=== PATIENT | female | born 1945 | race Caucasian/White ===

== ENCOUNTER 2023-11-27 11:52 | Emergency (ER) | payer BC, MEDICAID ==
[~2023-11-27] VITALS: Ht 170.2 cm; Wt 96.3 kg
[~2023-11-27 11:52] MED LIST: ARIP2TAB20 PO; ASPI-1071 PO; ESCI20TA39 PO; METO-539 PO; TRAM50TA2 PO; TRIA1TAB5 PO
[2023-11-27 12:36] VITALS: TEMP 97.2
[2023-11-27 13:11] LABS: BASOPHILS # (AUTO) 0.1 X10'3 (0-0.2); BASOPHILS % (AUTO) 0.9 % (0-1); EOSINOPHILS # (AUTO) 0.1 X10'3 (0-0.9); EOSINOPHILS % (AUTO) 2.1 % (0-6); HEMATOCRIT 39.9 % (35.0-45.0); HEMOGLOBIN 13.3 g/dl (12.0-16.0); LYMPHOCYTES # (AUTO) 1.9 X10'3 (1.1-4.8); LYMPHOCYTES % (AUTO) 28.6 % (21-51); MEAN CORPUSCULAR HEMOGLOBIN 30.2 PG (27.0-31.0); MEAN CORPUSCULAR HGB CONC 33.5 g/dL (33.0-36.5); MEAN CORPUSCULAR VOLUME 90.3 FL (78-98); MEAN PLATELET VOLUME 10.5 FL (7.4-10.4); MONOCYTES # (AUTO) 0.7 X10'3 (0-0.9); MONOCYTES % (AUTO) 10.6 % (2-12); NEUTROPHILS # (AUTO) 3.8 X10'3 (1.8-7.7); NEUTROPHILS % (AUTO) 57.8 % (42-75); PLATELET COUNT 249 X10'3 (140-440); RED BLOOD COUNT 4.41 X10'6 (4.20-5.60); WHITE BLOOD COUNT 6.6 X10'3 (4.5-11.0)
[2023-11-27 13:25] LABS: APTT 25 SECONDS (22-32); PROTHROMBIN TIME 10.9 SECONDS (9.0-12.0)
[2023-11-27 13:27] LABS: ALANINE AMINOTRANSFERASE 37 U/L (12-78); ALBUMIN 4.1 G/DL (3.4-5.0); ALBUMIN/GLOBULIN RATIO 1.1 (1.1-1.5); ALKALINE PHOSPHATASE 78 IU/L (46-116); ANION GAP 9 (8-16); ASPARTATE AMINO TRANSFERASE 20 U/L (10-37); BLOOD UREA NITROGEN 29 MG/DL (7-18); BUN/CREATININE RATIO 22.5 (10.0-20.0); CALCIUM 9.3 MG/DL (8.5-10.1); CHLORIDE 108 MMOL/L (99-107); CREATININE 1.29 MG/DL (0.40-0.90); GLUCOSE 125 MG/DL (70-104); POTASSIUM 4.4 MMOL/L (3.5-5.1); SODIUM 144 MMOL/L (135-145); TOTAL CARBON DIOXIDE 26.8 MMOL/L (24-32); eCRCL 35 ML/MIN; eGFR 40 ML/MIN
[2023-11-27 13:35] LABS: PRO BRAIN NATRIURETIC PEPTIDE 142 PG/ML (0-450)
[2023-11-27] MEDS ORDERED: iohexol 350MG/ML 100ml bottle IV ONE (14:30)
[2023-11-27 16:23] VITALS: BP 169/89; PULSE 82; RESP 16; O2SAT 96
== END 2023-11-27 17:24 | disposition home or self-care (01) ==
LOC: ER 11:53
DX: R06.02 Shortness of breath (principal); I10 Essential (primary) hypertension; I25.2 Old myocardial infarction; Z90.49 Acquired absence of other specified parts of digestive tract; Z79.82 Long term (current) use of aspirin; Z79.899 Other long term (current) drug therapy
CPT/HCPCS: 36415; 71045; 71275; 80053; 83880; 84484; 85025; 85379; 85610; 85730; 99285; J3490; Q9967

== ENCOUNTER 2024-03-12 16:34 | Inpatient (IN) | payer BC, MEDICAID ==
[~2024-03-12] VITALS: Ht 170.2 cm; Wt 34.7 kg
[~2024-03-12 16:34] MED LIST changes: -ARIP2TAB20 PO; +ARIP2TAB67 PO
[2024-03-12] MEDS ORDERED: AMLO-139 PO (17:13)
[2024-03-12] MEDS ORDERED: ATOR40TA PO (17:13)
[2024-03-12 18:16] LABS: BILIRUBIN,URINE NEGATIVE (Neg); CLARITY,URINE CLEAR (Clear); COLOR,URINE YELLOW (Yellow); GLUCOSE, URINE NEGATIVE (Neg); KETONES,URINE NEGATIVE (Neg); LEUKOCYTE ESTERASE ,URINE NEGATIVE (Neg); NITRITES, URINE NEGATIVE (Neg); OCCULT BLOOD,URINE TRACE-INTACT (Neg); PROTEIN,URINE NEGATIVE (Neg); UA COLLECTION TYPE CLN CATCH MIDSTREAM; UROBILINOGEN,URINE 0.2 E.U/dL (0.2-1.0)
[2024-03-12 18:24] LABS: ALBUMIN 3.6 G/DL (3.4-5.0); ANION GAP 9 (8-16); BLOOD UREA NITROGEN 18 MG/DL (7-18); BUN/CREATININE RATIO 15.5 (10.0-20.0); CALCIUM 8.7 MG/DL (8.5-10.1); CHLORIDE 107 MMOL/L (99-107); CREATININE 1.16 MG/DL (0.40-0.90); GLUCOSE 123 MG/DL (70-104); POTASSIUM 3.8 MMOL/L (3.5-5.1); SODIUM 140 MMOL/L (135-145); TOTAL CARBON DIOXIDE 23.9 MMOL/L (24-32); eCRCL 22 ML/MIN; eGFR 45 ML/MIN
[2024-03-12 18:26] LABS: URINE AMPHETAMINE SCREEN NEGATIVE (Neg); URINE BARBITUATE SCREEN NEGATIVE (Neg); URINE BENZODIAZEPINES SCREEN NEGATIVE (Neg); URINE CANNABINOID SCREEN NEGATIVE (Neg); URINE COCAINE SCREEN NEGATIVE (Neg); URINE METHADONE SCREEN NEGATIVE (Neg); URINE OPIATE SCREEN NEGATIVE (Neg); URINE PHENCYCLIDINE SCREEN NEGATIVE (Neg)
[2024-03-12 18:28] LABS: BASOPHILS % (AUTO) 0.5 % (0-1); EOSINOPHILS # (AUTO) 0.1 X10'3 (0-0.9); EOSINOPHILS % (AUTO) 2.1 % (0-6); HEMATOCRIT 39.3 % (35.0-45.0); HEMOGLOBIN 13.1 g/dl (12.0-16.0); LYMPHOCYTES # (AUTO) 1.4 X10'3 (1.1-4.8); MEAN CORPUSCULAR HEMOGLOBIN 30.2 PG (27.0-31.0); MEAN CORPUSCULAR HGB CONC 33.3 g/dL (33.0-36.5); MEAN CORPUSCULAR VOLUME 90.5 FL (78-98); MEAN PLATELET VOLUME 10.8 FL (7.4-10.4); MONOCYTES # (AUTO) 0.7 X10'3 (0-0.9); MONOCYTES % (AUTO) 10.2 % (2-12); NEUTROPHILS # (AUTO) 4.5 X10'3 (1.8-7.7); NEUTROPHILS % (AUTO) 66.2 % (42-75); PLATELET COUNT 218 X10'3 (140-440); RED BLOOD COUNT 4.34 X10'6 (4.20-5.60); RED CELL DISTRIBUTION WIDTH 14.2 % (11.5-14.5); WHITE BLOOD COUNT 6.8 X10'3 (4.5-11.0)
[2024-03-12 18:31] LABS: SQUAMOUS EPITHELIAL CELL,UR FEW /LPF (FEW)
[2024-03-12 18:32] LABS: BACTERIA,URINE NONE SEEN /HPF (Neg); RBC,URINE NONE SEEN /HPF (0-2); STARCH,URINE FEW /HPF (NEGATIVE); WBC,URINE 0-4 /HPF (0-4)
[2024-03-12] MEDS ORDERED: magnesium hydroxide 30ml (MOM) UD suspension PO PRN (21:55)
[2024-03-12] MEDS ORDERED: potassium Cl 40MEQ/1/2NS 520ml 520 ML IV PRN (21:55)
[2024-03-12] MEDS ORDERED: mag hydrox/Alum hydrox/simeth 30ml oral suspension PO PRN (21:55)
[2024-03-12] MEDS ORDERED: magnesium sulf-water 2g/50mL 50 ML IV PRN (21:55)
[2024-03-12] MEDS ORDERED: magnesium sulf-water 4G/100mL 100 ML IV PRN (21:55)
[2024-03-12] MEDS ORDERED: acetaminophen 325mg tablet PO PRN (21:55)
[2024-03-12] MEDS ORDERED: PERFLUTREN PROTEIN-A MICROSPHR (Optison) 0.22 MG/ML 3ML VIAL IV PRN (21:55)
[2024-03-12] MEDS ORDERED: potassium Cl 20 mEq SR tablet PO PRN ×2 (21:55)
[2024-03-12] MEDS ORDERED: ondansetron/PF 4mg/2ml inj IV PRN (21:55)
[2024-03-12] MEDS ORDERED: morphine 2 MG/ML inj. syringe IV PRN (21:55)
[2024-03-12] MEDS: normal saline 1000ml 1,000 ML IV SCH (21:55)
[2024-03-12] MEDS ORDERED: magnesium Cl slow-release 64mg tablet PO PRN (21:55)
[2024-03-12] MEDS: metoprolol succinate 25mg (24-HOUR) SR. Tablet PO ONE (22:04)
[2024-03-12 22:36] LABS: HEMOGLOBIN A1C 6.4 % (4.5-6.2)
[2024-03-12 23:22] LABS: APTT 24 SECONDS (22-32); PROTHROMBIN TIME 10.9 SECONDS (9.0-12.0)
[2024-03-13] MEDS: hydrALAZINE 20mg/ml inj. IV ONE (00:15)
[2024-03-13] MEDS ORDERED: hydrALAZINE 20mg/ml inj. IV PRN (01:40)
[2024-03-13 02:54] LABS: BASOPHILS % (AUTO) 0.4 % (0-1); EOSINOPHILS # (AUTO) 0.2 X10'3 (0-0.9); EOSINOPHILS % (AUTO) 2.4 % (0-6); HEMATOCRIT 37.5 % (35.0-45.0); HEMOGLOBIN 12.7 g/dl (12.0-16.0); LYMPHOCYTES # (AUTO) 2.9 X10'3 (1.1-4.8); LYMPHOCYTES % (AUTO) 34.4 % (21-51); MEAN CORPUSCULAR HEMOGLOBIN 30.2 PG (27.0-31.0); MEAN CORPUSCULAR HGB CONC 33.8 g/dL (33.0-36.5); MEAN CORPUSCULAR VOLUME 89.4 FL (78-98); MEAN PLATELET VOLUME 10.4 FL (7.4-10.4); NEUTROPHILS # (AUTO) 4.3 X10'3 (1.8-7.7); NEUTROPHILS % (AUTO) 50.8 % (42-75); PLATELET COUNT 219 X10'3 (140-440); RED BLOOD COUNT 4.19 X10'6 (4.20-5.60); RED CELL DISTRIBUTION WIDTH 14.1 % (11.5-14.5); WHITE BLOOD COUNT 8.6 X10'3 (4.5-11.0)
[2024-03-13 03:17] LABS: ALANINE AMINOTRANSFERASE 25 U/L (12-78); ALBUMIN 3.4 G/DL (3.4-5.0); ALKALINE PHOSPHATASE 78 IU/L (46-116); ANION GAP 12 (8-16); ASPARTATE AMINO TRANSFERASE 19 U/L (10-37); BILIRUBIN,TOTAL 0.9 MG/DL (0.1-1.0); BLOOD UREA NITROGEN 20 MG/DL (7-18); CALCIUM 8.7 MG/DL (8.5-10.1); CHLORIDE 109 MMOL/L (99-107); CHOL/HDL RATIO 4.4 (0.00-4.99); CHOLESTEROL 205 MG/DL (0-200); CREATININE 1.05 MG/DL (0.40-0.90); GLUCOSE 100 MG/DL (70-104); HDL CHOLESTEROL 47 MG/DL (35-60); LDL CHOLESTEROL 127 MG/DL (50-100); MAGNESIUM 1.9 MG/DL (1.5-2.4); POTASSIUM 3.9 MMOL/L (3.5-5.1); SODIUM 142 MMOL/L (135-145); TOTAL PROTEIN 6.9 G/DL (6.4-8.2); TRIGLYCERIDES 216 MG/DL (20-135); eCRCL 24 ML/MIN; eGFR 51 ML/MIN
[2024-03-13] MEDS: atorvastatin 20mg tablet PO SCH (07:28)
[2024-03-13] MEDS: amLODIPine 5mg tablet PO SCH (07:28)
[2024-03-13] MEDS: lisinopril 20mg tablet PO SCH (07:29)
[2024-03-13] MEDS: ESCITALOPRAM 10 mg tablet 10 MG TABLET PO SCH (07:29)
[2024-03-13] MEDS: docusate sod 100mg capsule PO SCH (07:30)
[2024-03-13] MEDS: aripiprazole 2MG tablet PO SCH (07:30)
[2024-03-13] MEDS: K and/or MAG REPLACEMENT MC SCH (08:00)
[2024-03-13] MEDS: triamterene/HCTZ 37.5/25mg tablet PO SCH (08:21)
[2024-03-13] MEDS ORDERED: ipratropium/albuterol 3ml nebule NEB PRN (08:55)
[2024-03-13 12:02] VITALS: BP 133/78; PULSE 74; RESP 10; TEMP 98.2; O2SAT 94
[2024-03-13] MEDS ORDERED: TIOT4MIS5 INH (14:18)
[2024-03-13] MEDS ORDERED: AMLO10TA14 PO (14:18)
[2024-03-13 15:23] VITALS: BP 149/64; PULSE 76; TEMP 98.5; O2SAT 94
[2024-03-13 20:29] VITALS: BP 139/67; PULSE 76; PULSE 80; RESP 16; TEMP 98.5; O2SAT 93; O2SAT 95
[2024-03-13] MEDS: ipratropium 0.5 MG/2.5ML nebule IH SCH (20:29)
[2024-03-13] MEDS: metoprolol succinate 25mg (24-HOUR) SR. Tablet PO SCH (20:34)
[2024-03-13 20:36] VITALS: PULSE 83; RESP 16
[2024-03-13 22:00] VITALS: BP 154/64; PULSE 84; RESP 16; TEMP 97.4; O2SAT 92
[2024-03-14 07:37] VITALS: PULSE 70; RESP 20; O2SAT 94
[2024-03-14 07:42] VITALS: PULSE 70; RESP 20
[2024-03-14 08:00] VITALS: RESP 16; O2SAT 95
[2024-03-14 08:07] LABS: BASOPHILS # (AUTO) 0.1 X10'3 (0-0.2); BASOPHILS % (AUTO) 0.8 % (0-1); EOSINOPHILS # (AUTO) 0.2 X10'3 (0-0.9); EOSINOPHILS % (AUTO) 2.6 % (0-6); HEMATOCRIT 40.2 % (35.0-45.0); HEMOGLOBIN 13.3 g/dl (12.0-16.0); LYMPHOCYTES # (AUTO) 3.3 X10'3 (1.1-4.8); LYMPHOCYTES % (AUTO) 40.7 % (21-51); MEAN CORPUSCULAR HEMOGLOBIN 29.8 PG (27.0-31.0); MEAN CORPUSCULAR HGB CONC 33.2 g/dL (33.0-36.5); MEAN CORPUSCULAR VOLUME 89.8 FL (78-98); MEAN PLATELET VOLUME 10.5 FL (7.4-10.4); MONOCYTES # (AUTO) 0.9 X10'3 (0-0.9); MONOCYTES % (AUTO) 10.4 % (2-12); NEUTROPHILS # (AUTO) 3.7 X10'3 (1.8-7.7); NEUTROPHILS % (AUTO) 45.5 % (42-75); PLATELET COUNT 243 X10'3 (140-440); RED BLOOD COUNT 4.48 X10'6 (4.20-5.60); RED CELL DISTRIBUTION WIDTH 14.3 % (11.5-14.5); WHITE BLOOD COUNT 8.2 X10'3 (4.5-11.0)
[2024-03-14 08:26] LABS: ALANINE AMINOTRANSFERASE 22 U/L (12-78); ALBUMIN 3.5 G/DL (3.4-5.0); ALKALINE PHOSPHATASE 76 IU/L (46-116); ANION GAP 10 (8-16); ASPARTATE AMINO TRANSFERASE 26 U/L (10-37); BILIRUBIN,TOTAL 1.1 MG/DL (0.1-1.0); BLOOD UREA NITROGEN 27 MG/DL (7-18); BUN/CREATININE RATIO 20.6 (10.0-20.0); CALCIUM 8.9 MG/DL (8.5-10.1); CHLORIDE 106 MMOL/L (99-107); CREATININE 1.31 MG/DL (0.40-0.90); GLUCOSE 112 MG/DL (70-104); MAGNESIUM 2.2 MG/DL (1.5-2.4); POTASSIUM 4.1 MMOL/L (3.5-5.1); SODIUM 138 MMOL/L (135-145); TOTAL CARBON DIOXIDE 22.1 MMOL/L (24-32); TOTAL PROTEIN 7.1 G/DL (6.4-8.2); eCRCL 19 ML/MIN; eGFR 39 ML/MIN
[2024-03-14 09:26] LABS: PLATELET ESTIMATE NORMAL
[2024-03-14 09:27] LABS: ELLIPTOCYTES FEW; LARGE PLATELETS FEW; STOMATOCYTES FEW; TEAR DROP CELLS FEW
[2024-03-14] MEDS: atorvastatin 20mg tablet PO SCH (09:49)
[2024-03-14] MEDS: aspirin 81mg tab.chew PO SCH (09:50)
[2024-03-14 10:00] VITALS: BP 140/54; PULSE 73; RESP 16; TEMP 97.8; O2SAT 95
[2024-03-14] MEDS ORDERED: LISI20TA28 PO (10:00)
[2024-03-14] MEDS ORDERED: ATOR20TA66 PO (10:00)
[2024-03-14] MEDS ORDERED: ASPI81TA53 PO (10:00)
[2024-03-14 11:19] VITALS: PULSE 70; RESP 20; O2SAT 95
[2024-03-14 11:24] VITALS: PULSE 70; RESP 20
== END 2024-03-14 12:00 | disposition home or self-care (01) | DRG 78 ==
LOC: ER 16:34 → ED HOLD 22:07 → ORTHO 4S 03-13 16:05
PROVIDERS: ADMIT Student in an Organized Health Care Education/Training Program; ATTEND Family Medicine
DX: I67.4 Hypertensive encephalopathy (principal); G45.8 Other transient cerebral ischemic attacks and related syndromes; I16.1 Hypertensive emergency; G45.4 Transient global amnesia; N18.30 Chronic kidney disease, stage 3 unspecified; E88.810 Metabolic syndrome; I49.9 Cardiac arrhythmia, unspecified; I12.9 Hypertensive chronic kidney disease with stage 1 through stage 4 chronic kidney disease, or unspecified chronic kidney disease; I25.10 Atherosclerotic heart disease of native coronary artery without angina pectoris; J44.9 Chronic obstructive pulmonary disease, unspecified; Z79.899 Other long term (current) drug therapy; I25.2 Old myocardial infarction; Z90.49 Acquired absence of other specified parts of digestive tract
CPT/HCPCS: 36415; 70450; 70544; 70547; 70551; 71045; 80048; 80053; 80061; 80305; 81001; 82140; 83036; 83735; 84484; 85008; 85025; 85610; 85730; 93005; 93306; 94640; 94760; 97110; 97116; 97162; 99285; A6258; G0378; J0360; J7030

== ENCOUNTER 2024-12-26 16:01 | Emergency (ER) | payer MEDICARE, MEDICAID ==
[~2024-12-26] VITALS: Ht 170.2 cm; Wt 78.0 kg
[~2024-12-26 16:01] MED LIST changes: +AMLO10TA14 PO; -ASPI-1071 PO; +ASPI81TA53 PO; +ATOR20TA66 PO; +LISI20TA28 PO; +TIOT4MIS5 INH; -TRAM50TA2 PO
[2024-12-26 16:12] VITALS: TEMP 97.5
--- NOTE | 2024-12-26 16:45 | Physician Documentation ---
History of Present Illness ~ Chief Complaint: Vomiting Stated Complaint: VOMITING Time Seen by MD: 17:59 Primary Medical Doctor: Dr. Liu Source: patient Mode of Arrival: POV Exam Limitations: no limitations HPI 79-year-old female in with complaints of lack of appetite for several months but vomiting started at 2:00 p.m. today. Patient states that she has been eating bland foods including a hard boiled egg this morning trying to have lunch meat with a tortilla for lunch which is what she ended up vomiting. No blood in her vomit. Patient's last bowel movement was 2 days ago. Patient's pertinent history includes type 2 diabetes and chronic kidney disease she does see a materials inspector through [facility] her next appointment is February 16, 2025. Patient currently treating type 2 diabetes and CKD with Ozempic. Patient has been on Ozempic for over 4 months. Patient is currently on 0.5 mg weekly. Patient's blood sugar this morning at home was 117 and 134 in triage. Medication Reconciliation Allergies: Coded Allergies: No Known Allergies (Unverified , 03/12/24) Scheduled Amlodipine Besylate (Amlodipine Besylate), 1 TAB PO DAILY, (Reported) Aripiprazole (Aripiprazole), 1 TAB PO DAILY, (Reported) Aspirin (Children's Aspirin), 81 MG PO DAILY@0830 Atorvastatin Calcium (Atorvastatin Calcium), 80 MG PO DAILY Escitalopram Oxalate (Escitalopram Oxalate), 1 TAB PO DAILY, (Reported) Lisinopril (Lisinopril), 40 MG PO Q24H Metoprolol Succinate* (Toprol Xl*), 100 MG PO HS, (Reported) Tiotropium Scroggins (Spiriva Respimat), 2 PUFFS INH DAILY, (Reported) Triamterene/Hydrochlorothiazid (Triamterene-Hctz 75-50 Mg Tab), 1 TAB PO DAILY, (Reported) Scheduled PRN ONDANSETRON ODT 4mg tablet (Ondansetron Odt), 1 TAB PO Q6H PRN PRN for nausea/vomiting Past Medical History Past Medical History: Hypertension, Myocardial Infarction Past Surgical History: cholecystectomy Patient History: FHx: breast cancer FAMILY/OTHER, Name: Vivi isaacs (sister), Age: 59, Onset:40's - 50 Alcohol Use: None Drug Use: none Review of Systems Constitutional: Denies: fever Gastrointestinal: Reports: nausea, vomiting; Denies: abdominal pain Physical Exam Vital Signs: Temperature: 97.5, Source: Temporal, Heart Rate: 47, Respiratory Rate: 18, BP: 112/91, Pulse Oximetry: 97, Weight: 78.000 Oxygen Flow Rate: 0 Physical Exam General: This is a pleasant and mildly anxious appearing older woman HEENT: Atraumatic, oropharynx appears dry Heart: Regular rate and rhythm, normal-appearing peripheral perfusion Lungs: normal work of breathing, normal oxygen saturation on room air Abdomen: Soft, nondistended, nontender all quadrants, no rebound or guarding Neuro: Alert and oriented Psychiatric: Anxious but is cooperative with exam General Appearance: alert, WD/WN, no apparent distress Respiratory: lungs clear, normal breath sounds, no respiratory distress Chest: no accessory muscle use Cardiology Exam: regular rate, rhythm Progress Results/Orders Results/Orders Completed Orders - JANES GARIBAY MD Ondansetron Inj. (Zofran 4mg/2ml Vial) (12/26/24 18:57) Normal Saline 1000ml (0.9% Sodium Chlori (12/26/24 19:00) Medications Received in ER Medications (Trade) Dose Ordered Sig/Black Route PRN Reason Start Time Stop Time Status Last Admin Dose Admin (Zofran 4mg/2ml vial) 4 mg ONCE STAT IV 12/26/24 18:57 12/26/24 19:04 DC 12/26/24 19:08 4 MG (0.9% sodium chloride (NS) 1000ml IV soln) 1,000 ml ONCE ONCE IVB 12/26/24 19:00 12/26/24 19:01 DC 12/26/24 19:08 1,000 ML Vital Signs 12/26/24 12/26/24 12/26/24 12/26/24 16:12 18:49 18:51 20:17 Temp 97.5 Pulse 47 84 82 Resp 18 16 16 16 B/P (MAP) 112/91 117/72 (87) 175/84 (114) Pulse Ox 97 99 98 O2 Flow Rate 0 0 12/26/24 20:47 Pulse 82 Resp 16 B/P (MAP) 175/84 Pulse Ox 99 Laboratory Tests Test 12/26/24 16:21 12/26/24 17:31 Glucometer 134 H White Blood Count 7.4 Red Blood Count 3.79 L Hemoglobin 11.8 L Hematocrit 33.4 L Mean Corpuscular Volume 88.2 Mean Corpuscular Hemoglobin 31.1 H Mean Corpuscular Hemoglobin Concent 35.2 Red Cell Distribution Width 14.3 Platelet Count 252 Mean Platelet Volume 9.8 Neutrophils (%) (Auto) 57.6 Lymphocytes (%) (Auto) 29.6 Monocytes (%) (Auto) 10.4 Eosinophils (%) (Auto) 1.8 Basophils (%) (Auto) 0.6 Neutrophils # (Auto) 4.3 Lymphocytes # (Auto) 2.2 Monocytes # (Auto) 0.8 Eosinophils # (Auto) 0.1 Basophils # (Auto) 0.0 CBC Comment Sodium Level 139 Potassium Level 3.2 L Chloride Level 105 Carbon Dioxide Level 20.1 L Anion Gap 14 Blood Urea Nitrogen 21 H Creatinine 1.73 H Estimated GFR/1.73 m2 28 BUN/Creatinine Ratio 12.1 Glucose Level 128 H Calcium Level 9.2 Total Bilirubin 2.2 H Aspartate Amino Transf (AST/SGOT) 17 Alanine Aminotransferase (ALT/SGPT) 22 Alkaline Phosphatase 76 Total Protein 7.1 Albumin 3.7 Globulin 3.4 Albumin/Globulin Ratio 1.1 Lipase 25 Chemistry Comments Medical Decision Making Additional Comments Differential diagnosis includes gastritis, stomach virus, food poisoning, side effect of Ozempic, dehydration, electrolyte derangement, UTI, hepatitis, pancreatitis Assessment 79-year-old female presenting with 2 episodes of vomiting as well as decreased appetite in the setting of Ozempic use. By time of my evaluation she is only minimally nauseous, has not had any further vomiting. She did not appear to realize that Ozempic would make her have a decreased appetite and lose weight. She is on it for possible prediabetes. She was given Zofran and IV fluids after which she ate a meal and felt much improved. Her lab work is unremarkable including slightly improved kidney function compared to previous reported GFR. At this time, there was no evidence of an acute medical or surgical emergency. She has a benign abdominal exam. I doubt a dangerous intra-abdominal infection or obstruction. She will be discharged home with a prescription for Zofran, home care instructions, and close PCP follow up. Departure Time of Disposition: 20:41 Disposition: 01 HOME / SELF CARE / HOMELESS Impression: Primary Impression: Nausea and vomiting Additional Impression: Dehydration Condition: Improved Discharge Instructions: Nausea and Vomiting, Adult, Dehydration, Elderly Referrals: NO PRIMARY CARE PROVIDER (PCP) Prescriptions ONDANSETRON ODT 4mg tablet (ONDANSETRON ODT) 4 Mg Tab.rapdis 1 TAB PO Q6H PRN PRN for nausea/vomiting for 4 Days, #16 TAB 0 Refills Prov: JANES GARIBAY MD 12/26/24 Education Educated: Patient Educated regarding: diagnosis, treatment, need for follow up Signature Scribe Signature: sarah Attestation: NICOLE Daniels NP Dec 26, 2024 16:45 JANES GARIBAY MD Dec 26, 2024 19:01
[2024-12-26 17:51] LABS: MEAN PLATELET VOLUME 9.8 FL (7.4-10.4); RED CELL DISTRIBUTION WIDTH 14.3 % (11.5-14.5)
[2024-12-26 18:05] LABS: CREATININE 1.73 MG/DL (0.40-0.90); TOTAL CARBON DIOXIDE 20.1 MMOL/L (24-32); eCRCL 26 ML/MIN; eGFR 28 ML/MIN
[2024-12-26] MEDS: normal saline 1000ML IV soln IVB ONE (19:08)
[2024-12-26] MEDS: ondansetron/PF 4mg/2ml inj IV STA (19:08)
[2024-12-26] MEDS ORDERED: ONDA-243 PO (20:42)
[2024-12-26 20:47] VITALS: BP 175/84; PULSE 82; RESP 16; O2SAT 99
== END 2024-12-26 21:04 | disposition home or self-care (01) ==
LOC: ER 16:01
DX: R11.2 Nausea with vomiting, unspecified (principal); E86.0 Dehydration; R63.0 Anorexia; I12.9 Hypertensive chronic kidney disease with stage 1 through stage 4 chronic kidney disease, or unspecified chronic kidney disease; E11.22 Type 2 diabetes mellitus with diabetic chronic kidney disease; N18.9 Chronic kidney disease, unspecified; I25.2 Old myocardial infarction; Z90.49 Acquired absence of other specified parts of digestive tract
CPT/HCPCS: 36415; 80053; 82948; 83690; 85025; 96361; 96374; 99283; J2405; J7030